=== PATIENT | male | born 2000 | race Caucasian/White ===

== ENCOUNTER → 2020-04-21 11:40 | Outpatient (BNVA) | payer OTHER, SELFPAY | PROVIDERS: PCP Family Medicine; Visit Provider Nurse Practitioner Family | DX: R05 Cough (principal); R09.81 Nasal congestion; R53.83 Other fatigue; Z11.59 Encounter for screening for other viral diseases | CPT/HCPCS: 87635 ==

== ENCOUNTER 2022-11-29 11:27 | Emergency (ER) | payer SELFPAY ==
[2022-11-29] VITALS (14 sets, daily range): BP systolic 120; BP diastolic 73; PULSE 56–82; RESP 16–26; TEMP 36.7; O2SAT 97–100; BMI 22.9
[2022-11-29 13:14] LABS: Basophils # 0.1 10^3/uL (0.0-0.1); Basophils % 0.3 %; Eosinophils % 0.3 %; Hematocrit 40.3 % (42.0-52.0); Lymphocytes # 1.4 10^3/uL (0.8-4.8); Lymphocytes % 9.6 %; Mean Corpuscular HGB Conc 34.7 g/dL (30.0-36.0); Mean Corpuscular Hemoglobin 29.7 pg (28.0-34.0); Mean Corpuscular Volume 85.4 fl (80-94); Mean Platelet Volume 10.1 fL (7.4-10.4); Monocytes # 0.6 10^3/uL (0.2-0.9); Monocytes % 4.2 %; Neutrophils # 12.31 10^3/uL (1.8-7.7); Neutrophils % 85.1 %; Nucleated Red Blood Cells % 0 %; Platelet Count 282 10^3/cmm (130-400); Red Blood Count 4.72 10^6/uL (4.1-5.3); Red Cell Distribution Width 11.4 % (12.1-15.1); White Blood Count 14.5 10^3/uL (4.0-10.0)
[2022-11-29 13:39] LABS: Alanine Aminotransferase 13 U/L (0-41); Albumin Level 5.4 g/dL (3.5-5.2); Alkaline Phosphatase 73 U/L (40-130); Anion Gap 18.5 (5-19); Aspartate Amino Transferase 19 U/L (0-40); Blood Urea Nitrogen 11 mg/dL (6-20); Calcium 10.6 mg/dL (8.5-10.5); Carbon Dioxide 22 mmol/L (22-29); Chloride 95 mmol/L (98-107); Globulin 2.7 g/dL (1.3-4.6); Glomerular Filtration Rate 119.8 mL/min (90-130); Glucose 82 mg/dL (65-115); Lipase 11 U/L (13-60); Osmolality Calculated 272 mOsm/kg (285-295); Potassium 3.5 mmol/L (3.5-5.1); Sodium 132 mmol/L (136-145); Total Bilirubin 1.2 mg/dL (0.15-1.2); Total Protein 8.1 g/dL (6.6-8.7)
--- NOTE | 2022-11-29 14:49 | CT_ITS ---
WS: [id number] CT ABDOMEN PELVIS TECHNIQUE: Contrast-enhanced CT of the abdomen and pelvis with coronal and sagittal reformatted image s. CLINICAL INFORMATION: Centralized abdominal pain, nausea/vomiting/diarrhea COMPARISON: CT 2018 DLP: 345.[address] scans at [facility] use at least one of these dose optimization techniques: automated e xposure control; mA and/or kV adjustment per patient size (includes targeted exams where dose is matc hed to clinical indication); or iterative reconstruction. FINDINGS: Lung bases are well aerated. Normal liver. Normal portal vein and splenic vein. Normal spleen. Normal GE junction. Adrenal glands are normal. The Normal parenchymal pancreatic enhancement. Normal portal vein and splenic vein. Normal renal parenchymal enhancement. No hydronephrosis. Normal caliber abdom inal aorta. Celiac and SMA are patent. Urine distended bladder. Normal sigmoid colon. No evidence of high-grade small or large bowel obstruc tion. Appendix not well visualized but no evidence of acute appendicitis. Normal lumbar spine. CT/CT abdomen pelvis w con* [id number] IMPRESSION: No acute abdominal or pelvic findings
--- NOTE | 2022-11-29 14:50 | ED_ITS ---
Documented by User: ARPIT Thomas 11/30/22 07:07 HPI - Abdominal Pain General: Chief Complaint: Abdominal Pain Stated Complaint: N/V Time Seen by Provider: 11/29/22 14:34 History of Present Illness: Patient is a 22-year-old male comes to the ED with abdominal pain. Symptoms started this morning. He describes the abdominal pain is a sharp stabbing pain located throughout the upper abdomen. He rates the pain currently an 8.5 out of 10. Since onset of symptoms he has been having nausea and multiple episodes of emesis. He has also had multiple episodes of diarrhea today as well. He has never had pain like this before. He did not eat anything couple hours before start of symptoms. Denies any past surgeries involving the abdomen. Denies any fevers. Patient does admit to being a daily marijuana user. Associated Symptoms: Reports diarrhea, nausea and vomiting; Denies chills, constipation, dysuria, fever(s), hematochezia and hematuria Review of Systems Const: Denies: fever(s), chills or fatigue Eyes: Denies: change in vision or eye discomfort ENMT: Denies: throat pain, odynophagia, nasal discharge or nasal congestion Card: Denies: chest pain, palpitations, edema, swelling of feet/ankles, dyspnea on exertion or orthopnea Resp: Denies: dyspnea, productive cough or non-productive cough GI: Reports: abdominal pain, nausea, vomiting and diarrhea; Denies: constipation or hematochezia : Denies: flank pain, difficulty urinating, dysuria or hematuria Musc: Denies: neck pain, back pain or extremity swelling Skin/Breast: Denies: rash or new lesions Neuro: Denies: headache(s), numbness in extremities or weakness in extremities PFS ED PFSH: Medical History No pertinent family history Surgical History No pertinent past surgical history Physical Exam Const: COMMON NORMALS: patient oriented x3 and alert GENERAL APPEARANCE: cooperative HENMT: COMMON NORMALS: normocephalic HEAD & SCALP: normocephalic MOUTH: Normal oral and palatal mucosa present THROAT: posterior oropharynx normal and uvula midline Neck/C-Spine: COMMON NORMALS: supple GENERAL: Yes normal visual inspection Resp: COMMON NORMALS: normal respiratory effort, No retractions, No use of accessory muscles and clear to auscultation bilaterally AUSCULTATION: clear to auscultation bilaterally Cardio: COMMON NORMALS: regular rate, regular rhythm, S1 normal heart sound pr esent, S2 normal heart sound present, No gallops present (Cardio), No clicks present (Cardio), No murmurs present (Cardio) and Peripheral pulses 2+ throughout RATE: regular rate RHYTHM: regular rhythm HEART SOUNDS: S1 n ormal heart sound present and S2 normal heart sound present PERIPHERAL PULSES: Peripheral pulses 2+ throughout GI: COMMON NORMALS: Normal to inspection, nondistended, normoactive bowel sounds present, Soft to palpation and no masses PALPATION: Yes Soft to palpation and Yes Tenderness to palpation present (GI) Details: LLQ, LUQ and other (Epigastric tenderness) : COMMON NORMALS: Yes no CVA tenderness BLADDER/KIDNEY EXAM: Yes no CVA tenderness Back/Pelvis: COMMON NORMALS: no CVA tenderness Extremity: COMMON NORMALS: normal to inspection Neuro: COMMON NORMALS: patient oriented x3 SENSORIUM/ORIENTATION: Yes alert GAIT: Yes Normal gait present Skin: GENERAL SKIN EXAM: dry skin Course Vital Signs: Vital signs: Vital Signs Temperature 98.1 F 11/29/22 11:40 Pulse Rate 65 11/29/22 17:50 Respiratory Rate 18 11/29/22 17:50 Blood Pressure 120/73 11/29/22 15:44 Pulse Oximetry 98 11/29/22 17:50 Oxygen Delivery Me thod 11/29/22 11:40 MDM - Abdominal Pain Lab Data I reviewed the patient's lab results. 11/29/22 13:08 11/29/22 13:08 Labs/Radiology: Radiology Impressions Abdomen/Pelvis CT 11/29/22 14:49 IMPRESSION: No acute abdominal or pelvic findings Laboratory Results WBC 14.5 10^3/uL (4.0-10.0) H 11/29/22 13:08 RBC 4.72 10^6/uL (4.1-5.3) 11/29/22 13:08 Hgb 14.0 g/dL (11.7-16.6) 11/29/22 13:08 Hct 40.3 % (42.0-52.0) L 11/29/22 13:08 MCV 85.4 fl (80-94) 11/29/22 13:08 MCH 29.7 pg (28.0-34.0) 11/29/22 13:08 MCHC 34.7 g/dL (30.0-36.0) 11/29/22 13:08 RDW 11.4 % (12.1-15.1) L 11/29/22 13:08 Plt Count 282 10^3/cmm (130-400) 11/29/22 13:08 MPV 10.1 fL (7.4-10.4) 11/29/22 13:08 Neut % (Auto) 85.1 % 11/29/22 13:08 Lymph % (Auto) 9.6 % 11/29/22 13:08 [place] % (Auto) 4.2 % 11/29/22 13:08 Eos % (Auto) 0.3 % 11/29/22 13:08 Baso % (Auto) 0.3 % 11/29/22 13:08 Neut # (Auto) 12.31 10^3/uL (1.8-7.7) H 11/29/22 13:08 Lymph # (Auto) 1.4 10^3/uL (0.8-4.8) 11/29/22 13:08 [place] # (Auto) 0.6 10^3/uL (0.2-0.9) 11/29/22 13:08 Eos # (Auto) 0.0 10^3/uL (0.0-0.8) 11/29/22 13:08 Baso # (Auto) 0.1 10^3/uL (0.0-0.1) 11/29/22 13:08 Nucleated RBC % (auto) 0 % 11/29/22 13:08 Nucleated RBCs # 0.0 /100WBC 11/29/22 13:08 Sodium 132 mmol/L (136-145) L 11/29/22 13:08 Potassium 3.5 mmol/L (3.5-5.1) 11/29/22 13:08 Chloride 95 mmol/L (98-107) L 11/29/22 13:08 Carbon Dioxide 22 mmol/L (22-29) 11/29/22 13:08 Anion Gap 18.5 (5-19) 11/29/22 13:08 BUN 11 mg/dL (6-20) 11/29/22 13:08 Creatinine 0.8 mg/dL (0.7-1.2) 11/29/22 13:08 GFR Calculation 119.8 mL/min (90-130) 11/29/22 13:08 Glucose 82 mg/dL (65-115) 11/29/22 13:08 Calculated Osmolality 272 mOsm/kg (285-295) L 11/29/22 13:08 Calcium 10.6 mg/dL (8.5-10.5) H 11/29/22 13:08 Total Bilirubin 1.2 mg/dL (0.15-1.2) 11/29/22 13:08 AST 19 U/L (0-40) 11/29/22 13:08 ALT 13 U/L (0-41) 11/29/22 13:08 Alkaline Phosphatase 73 U/L (40-130) 11/29/22 13:08 Total Protein 8.1 g/dL (6.6-8.7) 11/29/22 13:08 Albumin 5.4 g/dL (3.5-5.2) H 11/29/22 13:08 Globulin 2.7 g/dL (1.3-4.6) 11/29/22 13:08 Lipase 11 U/L (13-60) L 11/29/22 13:08 Urine Color Dark yellow (Yellow) 11/29/22 15:33 Urine Appearance Cloudy (CLEAR) A 11/29/22 15:33 Urine pH 9 (5-7) H 11/29/22 15:33 Ur Specific [place] 1.010 (1.005-1.030) 11/29/22 15:33 Urine Protein Neg (Negative) 11/29/22 15:33 Urine Glucose (UA) Norm (Normal) 11/29/22 15:33 Urine Ketones 2+ (Negative) H 11/29/22 15:33 Urine Blood 2+ (Negative) H 11/29/22 15:33 Urine Nitrate Negative (Negative) 11/29/22 15:33 Urine Bilirubin Neg (Negative) 11/29/22 15:33 Prot Sulfosalicylic Acd Negative (Negative) 11/29/22 15:33 Urine Urobilinogen Norm mg/dL (Negative) 11/29/22 15:33 Ur Leukocyte Esterase Negative (Negative) 11/29/22 15:33 Urine RBC 0-4 /hpf (0-2) H 11/29/22 15:33 Urine WBC 10-15 /hpf (0-5) H 11/29/22 15:33 Ur Squamous Epith Cells 0-4 /hpf (0-5) H 11/29/22 15:33 Amorphous Sediment 4+ /hpf 11/29/22 15:33 Urine Bacteria Trace /hpf (NONE) 11/29/22 15:33 H. pylori IgG Antibody Negative (Negative) 11/29/22 13:08 Discharge Plan Discharge Patient Disposition: Home Clinical Impression: Nausea and vomiting Qualifiers: Vomiting type: unspecified Qualified Code(s): R11.2 - Nausea with vomiting, unspecified Condition: Stable Prescriptions: New metoclopramide HCl 10 mg tablet 10 mg PO Q6H PRN (Reason: nausea and vomiting) Qty: 14 0RF Discharge Orders: Discharge ED (Routine); Ordered 11/29/22 Ordered By: Enma Medel Referrals: Maura Chandra DO [Primary Care Provider] - Patient Instructions: Acute Nausea and Vomiting (DC), Abdominal Pain (ED) Sign Out Sign Out Data: Patient Sign Out occurred on 11/29/22 at 17:07. Patient's care was discussed, and care was transferred from to ARPIT Baca. Coding Level of Care Code ED Technical Publications Manager for Chg Fwd Documented by User: ARPIT Baca 11/29/22 17:40 HPI - Abdominal Pain General: Chief Complaint: Abdominal Pain Stated Complaint: N/V Time Seen by Provider: 11/29/22 14:34 PFSH ED PFSH: Medical History No pertinent family history Surgical History No pertinent past surgical history Course Vital Signs: Vital signs: Vital Signs Temperature 98.1 F 11/29/22 11:40 Pulse Rate 65 11/29/22 17:50 Respiratory Rate 18 11/29/22 17:50 Blood Pressure 120/73 11/29/22 15:44 Pulse Oximetry 98 11/29/22 17:50 Oxygen Delivery Me thod 11/29/22 11:40 MDM - Abdominal Pain Medical Decision Making I assumed care of patient from Octavio Conteh PA-C. Patient's vital signs are s table. His blood work overall is unremarkable. CT of his abdomen and pelvis showed no acute findings. Pain had improved upon transfer of care and we were just working on controlling patient's nausea and vomiting. After he was given Reglan he was able to hold down fluids and crackers without difficulty. He states he feels comfortable going home at this time. Patient with no history of cyclic vomiting but this certainly could be related to his habitual marijuana use. Other DDx includes gastroenteritis. Return to ED precautions discussed. Lab Data 11/29/22 13:08 11/29/22 13:08 Labs/Radiology: Radiology Impressions Abdomen/Pelvis CT 11/29/22 14:49 IMPRESSION: No acute abdominal or pelvic findings Laboratory Results WBC 14.5 10^3/uL (4.0-10.0) H 11/29/22 13:08 RBC 4.72 10^6/uL (4.1-5.3) 11/29/22 13:08 Hgb 14.0 g/dL (11.7-16.6) 11/29/22 13:08 Hct 40.3 % (42.0-52.0) L 11/29/22 13:08 MCV 85.4 fl (80-94) 11/29/22 13:08 MCH 29.7 pg (28.0-34.0) 11/29/22 13:08 MCHC 34.7 g/dL (30.0-36.0) 11/29/22 13:08 RDW 11.4 % (12.1-15.1) L 11/29/22 13:08 Plt Count 282 10^3/cmm (130-400) 11/29/22 13:08 MPV 10.1 fL (7.4-10.4) 11/29/22 13:08 Neut % (Auto) 85.1 % 11/29/22 13:08 Lymph % (Auto) 9.6 % 11/29/22 13:08 [place] % (Auto) 4.2 % 11/29/22 13:08 Eos % (Auto) 0.3 % 11/29/22 13:08 Baso % (Auto) 0.3 % 11/29/22 13:08 Neut # (Auto) 12.31 10^3/uL (1.8-7.7) H 11/29/22 13:08 Lymph # (Auto) 1.4 10^3/uL (0.8-4.8) 11/29/22 13:08 [place] # (Auto) 0.6 10^3/uL (0.2-0.9) 11/29/22 13:08 Eos # (Auto) 0.0 10^3/uL (0.0-0.8) 11/29/22 13:08 Baso # (Auto) 0.1 10^3/uL (0.0-0.1) 11/29/22 13:08 Nucleated RBC % (auto) 0 % 11/29/22 13:08 Nucleated RBCs # 0.0 /100WBC 11/29/22 13:08 Sodium 132 mmol/L (136-145) L 11/29/22 13:08 Potassium 3.5 mmol/L (3.5-5.1) 11/29/22 13:08 Chloride 95 mmol/L (98-107) L 11/29/22 13:08 Carbon Dioxide 22 mmol/L (22-29) 11/29/22 13:08 Anion Gap 18.5 (5-19) 11/29/22 13:08 BUN 11 mg/dL (6-20) 11/29/22 13:08 Creatinine 0.8 mg/dL (0.7-1.2) 11/29/22 13:08 GFR Calculation 119.8 mL/min (90-130) 11/29/22 13:08 Glucose 82 mg/dL (65-115) 11/29/22 13:08 Calculated Osmolality 272 mOsm/kg (285-295) L 11/29/22 13:08 Calcium 10.6 mg/dL (8.5-10.5) H 11/29/22 13:08 Total Bilirubin 1.2 mg/dL (0.15-1.2) 11/29/22 13:08 AST 19 U/L (0-40) 11/29/22 13:08 ALT 13 U/L (0-41) 11/29/22 13:08 Alkaline Phosphatase 73 U/L (40-130) 11/29/22 13:08 Total Protein 8.1 g/dL (6.6-8.7) 11/29/22 13:08 Albumin 5.4 g/dL (3.5-5.2) H 11/29/22 13:08 Globulin 2.7 g/dL (1.3-4.6) 11/29/22 13:08 Lipase 11 U/L (13-60) L 11/29/22 13:08 Urine Color Dark yellow (Yellow) 11/29/22 15:33 Urine Appearance Cloudy (CLEAR) A 11/29/22 15:33 Urine pH 9 (5-7) H 11/29/22 15:33 Ur Specific [place] 1.010 (1.005-1.030) 11/29/22 15:33 Urine Protein Neg (Negative) 11/29/22 15:33 Urine Glucose (UA) Norm (Normal) 11/29/22 15:33 Urine Ketones 2+ (Negative) H 11/29/22 15:33 Urine Blood 2+ (Negative) H 11/29/22 15:33 Urine Nitrate Negative (Negative) 11/29/22 15:33 Urine Bilirubin Neg (Negative) 11/29/22 15:33 Prot Sulfosalicylic Acd Negative (Negative) 11/29/22 15:33 Urine Urobilinogen Norm mg/dL (Negative) 11/29/22 15:33 Ur Leukocyte Esterase Negative (Negative) 11/29/22 15:33 Urine RBC 0-4 /hpf (0-2) H 11/29/22 15:33 Urine WBC 10-15 /hpf (0-5) H 11/29/22 15:33 Ur Squamous Epith Cells 0-4 /hpf (0-5) H 11/29/22 15:33 Amorphous Sediment 4+ /hpf 11/29/22 15:33 Urine Bacteria Trace /hpf (NONE) 11/29/22 15:33 H. pylori IgG Antibody Negative (Negative) 11/29/22 13:08 Discharge Plan Discharge Patient Disposition: Home Clinical Impression: Nausea and vomiting Qualifiers: Vomiting type: unspecified Qualified Code(s): R11.2 - Nausea with vomiting, unspecified Condition: Stable Prescriptions: New metoclopramide HCl 10 mg tablet 10 mg PO Q6H PRN (Reason: nausea and vomiting) Qty: 14 0RF Discharge Orders: Discharge ED (Routine); Ordered 11/29/22 Ordered By: Enma Medel Referrals: Maura Chandra DO [Primary Care Provider] - Patient Instructions: Acute Nausea and Vomiting (DC), Abdominal Pain (ED) Sign Out Sign Out Data: Patient Sign Out occurred on 11/29/22 at 17:07. Patient's care was discussed, and care was transferred from to ARPIT Baca. Coding Level of Care Code ED Technical Publications Manager for Seymour Villarreal
[2022-11-29] MEDS: iohexol 350 mg/mL 500 mL Btl (per mL) IV (14:57)
[2022-11-29] MEDS: morphine 4 mg/mL SDV 1 mL IVP (15:25)
[2022-11-29] MEDS: ondansetron 2 mg/ML SDV 2 mL 4 MG IVP (15:26)
[2022-11-29] MEDS: sodium chloride 0.9% 1,000 ML 999 ML IV (15:26)
[2022-11-29 15:44] LABS: H. Pylori IgG Antibody Negative (Negative)
[2022-11-29] MEDS: lidocaine 2% viscous 15 ML, aluminum-mag hydrox-simethicon 30 ML, sucralfate oral liq 1 GM PO (16:37)
[2022-11-29] MEDS: famotidine 20 mg/2 mL INJ 40 MG IVP (16:37)
[2022-11-29] MEDS: metoclopramide 5 mg/mL SDV 2 mL 10 MG IVP (16:38)
--- NOTE | 2022-11-29 16:42 | PC.NURSE ---
PT VOMITED GI COCKTAIL
--- NOTE | 2022-11-29 16:43 | PC.NURSE ---
PHYSICIAN NOTIFIED PT VOMITED GI COCKTAIL. NO VERBAL ORDERS AT THIS TIME.
[2022-11-29 17:09] LABS: Urine Appearance Cloudy (CLEAR); Urine Color Dark Yellow (Yellow)
[2022-11-29 17:10] LABS: Add Urine Culture? No; Add Urine Microscopic? YES; Amorphous Sediment Urine 4+ /hpf; Bacteria Urine TRACE /hpf; Bilirubin Urine Neg (Negative); Blood Urine 2+ (Negative); Glucose Urine UA Norm (Normal); Ketones Urine 2+ (Negative); Leukocyte Esterase Urine Negative (Negative); Nitrate Urine Negative (Negative); Protein Urine Neg (Negative); RBC Urine 0-4 /hpf (0-2); Squamous Epithelial Cell Urine 0-4 /hpf (0-5); Sulfosalicylic Acid Urine Negative (Negative); Urobilinogen Urine Norm (Negative); pH Urine 9 (5-7)
--- NOTE | 2022-11-29 17:33 | PC.NURSE ---
PT TOLERATED PO FLUIDS. PT REQUESTED TO TRY CRACKERS
== END 2022-11-29 17:52 | disposition home or self-care (01) ==
PROVIDERS: Physician Assistant; Emergency Provider Physician Assistant; PCP Family Medicine
DX: R11.2 Nausea with vomiting, unspecified (principal)
CPT/HCPCS: 36415; 74177; 80053; 81001; 83690; 85025; 86677; 96374; 96375; 99285; J2270; J2405; J2765; J3490; J7030; Q9967

== ENCOUNTER 2023-09-23 14:34 | Emergency (ER) | payer SELFPAY ==
[2023-09-23 14:36] VITALS: BP 112/73; PULSE 86; RESP 18; TEMP 36.8; O2SAT 98; BMI 19.2
--- NOTE | 2023-09-23 14:38 | ECG_ITS ---
[facility] Test Date: 2023-09-23 Pat Name: Tristan Arias Department: Room: Gender: Male [employer]ure Professor: : 2000 Requested By: Enma Medel Order Number: [id number] Marleni MD: Javier Solo M.D. Measurements Intervals [place] Rate: 84 P: 62 MA: 146 QRS: 92 QRSD: 88 T: 60 QT: 317 QTc: 377 Interpretive Statements SINUS RHYTHM BORDERLINE RIGHT AXIS DEVIATION [QRS AXIS > 90] No previous ECG available for comparison Electronically Signed On 09-23-2023 21:50:04 JOURNEYMAN LINEMAN by Javier Solo M.D. [email or web address]
--- NOTE | 2023-09-23 14:41 | XR_ITS ---
WS: [id number] Portable AP upright chest, 09/23/2023 Clinical Data: chest pain, dizziness Comparison: Portable chest, 03/18/2018 Findings: No nodules, masses or effusions are seen. The heart is normal. The pulmonary vascularity is not increased. No pneumonia or pneumothorax is seen. Impression: Negative chest.
[2023-09-23 15:07] LABS: Hematocrit 38.5 % (37-53); Lymphocytes # 0.8 10^3/uL (0.8-4.8); Mean Corpuscular HGB Conc 34.8 g/dL (30-55); Mean Corpuscular Hemoglobin 30.1 pg (27-33); Mean Corpuscular Volume 86.5 fl (82-101); Mean Platelet Volume 10.2 fL (7.4-10.4); Monocytes # 0.4 10^3/uL (0.2-0.9); Monocytes % 10.8 %; Neutrophils # 2.69 10^3/uL (1.8-7.7); Neutrophils % 68.9 %; Nucleated Red Blood Cells % 0 %; Platelet Count 148 10^3/cmm (157-399); Red Blood Count 4.45 10^6/uL (3.85-5.65); Red Cell Distribution Width 11.6 % (12.1-15.1)
[2023-09-23 15:29] LABS: Alanine Aminotransferase 29 U/L (0-41); Albumin Level 4.4 g/dL (3.5-5.2); Alkaline Phosphatase 61 U/L (40-130); Anion Gap 17.4 (5-19); Aspartate Amino Transferase 36 U/L (0-40); Blood Urea Nitrogen 8 mg/dL (6-20); Calcium 8.8 mg/dL (8.5-10.5); Carbon Dioxide 23 mmol/L (22-29); Chloride 98 mmol/L (98-107); Glomerular Filtration Rate 119.8 mL/min (90-130); Glucose 108 mg/dL (65-115); Osmolality Calculated 277 mOsm/kg (285-295); Potassium 4.4 mmol/L (3.5-5.1); Sodium 134 mmol/L (136-145); Total Bilirubin 0.5 mg/dL (0.15-1.2); Total Protein 7.4 g/dL (6.6-8.7)
== END 2023-09-23 16:40 | disposition home or self-care (01) ==
PROVIDERS: Physician Assistant; Emergency Provider Family Medicine; PCP Family Medicine
DX: Z53.21 Procedure and treatment not carried out due to patient leaving prior to being seen by health care provider (principal)
CPT/HCPCS: 36415; 71045; 80053; 85025; 93005; 99285